=== PATIENT | male | born 1970 | race Caucasian/White ===

== ENCOUNTER 2024-01-04 20:09 | Emergency (ER) | payer OTHER ==
[~2024-01-04] VITALS: Ht 175.3 cm; Wt 88.6 kg
[2024-01-04 21:21] VITALS: BP 164/119; PULSE 90; RESP 16; TEMP 98.7
== END 2024-01-04 23:52 | disposition left against medical advice (07) ==
LOC: EMS 20:09
DX: M25.522 Pain in left elbow (principal); Z53.21 Procedure and treatment not carried out due to patient leaving prior to being seen by health care provider
CPT/HCPCS: 99281; Z7502